=== PATIENT | male | born 1960 | race American Indian/Alaskan Native ===

== ENCOUNTER 2016-12-14 20:03 | Emergency (ER) | payer OTHER ==
[2016-12-14 20:38] VITALS: BP 157/90
[2016-12-14] MEDS ORDERED: BOOSTRIX IM ONE (21:58)
[2016-12-14] MEDS ORDERED: NACL 0.9% IR ONE (21:58)
[2016-12-14] MEDS ORDERED: XYLOCAINE 1%/ EPI 1:100,000 INFILTRATI NR (22:00)
--- NOTE | 2016-12-14 22:45 | Emergency Department Report ---
- General Chief Complaint: Wound/Laceration Stated Complaint: LEFT ARM LACERATION Time Seen by Provider: 12/14/16 21:56 Source: patient Mode of arrival: Ambulatory Limitations: No Limitations - History of Present Illness Initial Comments: Patient comes into the ER today with complaints of a laceration to his left wrist. Patient states that he was scraping the main plates also some trophies and his house when the scraper accidentally slipped and he cut his left wrist. Patient is unsure of his last tetanus shot. Patient denies any other complaints. -: hour(s) (1) - Related Data Previous Rx's Medication Instructions Recorded Last Taken Type Cephalexin [Keflex] 500 mg PO TID #30 capsule 12/14/16 Unknown Rx traMADol [Ultram 50 MG tab] 50 mg PO Q4HR PRN #20 tablet 12/14/16 Unknown Rx Allergies Allergy/AdvReac Type Severity Reaction Status Date / Time No Known Allergies Allergy Verified 12/14/16 20:13 ED Review of Systems ROS: Stated complaint: LEFT ARM LACERATION Other details as noted in HPI Constitutional: denies: chills, fever Eyes: denies: eye pain, eye discharge, vision change ENT: denies: ear pain, throat pain Respiratory: denies: cough, shortness of breath, wheezing Cardiovascular: denies: chest pain, palpitations Endocrine: no symptoms reported Gastrointestinal: denies: abdominal pain, nausea, diarrhea Genitourinary: denies: urgency, dysuria Musculoskeletal: denies: back pain, joint swelling, arthralgia Skin: denies: rash, lesions Neurological: denies: headache, weakness, paresthesias Psychiatric: denies: anxiety, depression Hematological/Lymphatic: denies: easy bleeding, easy bruising ED Past Medical Hx - Past Medical History Previous Medical History?: Yes Hx Hypertension: Yes - Surgical History Past Surgical History?: No - Social History Smoking Status: Never Smoker Substance Use Type: None - Medications Home Medications: Home Medications Medication Instructions Recorded Confirmed Last Taken Type Cephalexin [Keflex] 500 mg PO TID #30 capsule 12/14/16 Unknown Rx traMADol [Ultram 50 MG tab] 50 mg PO Q4HR PRN #20 tablet 12/14/16 Unknown Rx ED Physical Exam - General Limitations: No Limitations General appearance: alert, in no apparent distress - Head Head exam: Present: atraumatic, normocephalic - Eye Eye exam: Present: normal appearance - ENT ENT exam: Present: mucous membranes moist - Neck Neck exam: Present: normal inspection - Respiratory Respiratory exam: Present: normal lung sounds bilaterally. Absent: respiratory distress - Cardiovascular Cardiovascular Exam: Present: regular rate, normal rhythm. Absent: systolic murmur, diastolic murmur, rubs, gallop - GI/Abdominal GI/Abdominal exam: Present: soft, normal bowel sounds - Rectal Rectal exam: Present: deferred - Extremities Exam Extremities exam: Present: full ROM, tenderness (left wrist), normal capillary refill, other (3.5 cm linear laceration noted to anterior lateral left wrist) - Back Exam Back exam: Present: normal inspection - Neurological Exam Neurological exam: Present: alert, oriented X3 - Psychiatric Psychiatric exam: Present: normal affect, normal mood - Skin Skin exam: Present: warm, dry, intact, normal color. Absent: rash ED Course Vital Signs 12/14/16 12/14/16 20:13 20:37 Temperature 98.5 F 98.3 F Pulse Rate 87 70 Respiratory 18 18 Rate Blood Pressure 162/102 Blood Pressure 157/90 [Right] O2 Sat by Pulse 100 98 Oximetry - Laceration /Wound Repair Left Anterior Lateral Volar Wrist Wound Location: upper extremity (left lateral anterior wrist) Wound Length (cm): 3 (actual laceration length 3.5 cm) Wound's Depth, Shape: linear (cutaneous) Wound Explored: clean Irrigated w/ Saline (ccs): 45 Betadine Prep?: Yes Anesthesia: Lidocaine w/ Epi Volume Anesthetic (ccs): 5 Wound Repaired With: sutures Suture Size/Type: 4:0, nylon Number of Sutures: 8 Layer Closure?: No Sterile Dressing Applied?: Yes ED Medical Decision Making - Medical Decision Making Patient tolerated laceration repair without any complications. Patient given update his tetanus vaccine here in the ER. Have instructed patient to return to the ER in 14 days for suture removal. I also instructed patient on proper care of phone. Patient is in agreement with treatment plan patient stable for discharge. Critical care attestation.: If time is entered above; I have spent that time in minutes in the direct care of this critically ill patient, excluding procedure time. ED Disposition Clinical Impression: Laceration of left wrist Disposition: DC-01 TO HOME OR SELFCARE Is pt being admited?: No Does the pt Need Aspirin: No Condition: Good Instructions: Laceration (ED), Suture Care (ED) Prescriptions: Cephalexin [Keflex] 500 mg PO TID #30 capsule traMADol [Ultram 50 MG tab] 50 mg PO Q4HR PRN #20 tablet PRN Reason: Pain Referrals: PRIMARY CARE,MD [Primary Care Provider] - 3-5 Days [facility], emergency Department [Other] - 12/28/16 (For suture removal) Time of Disposition: 22:56
[2016-12-14] MEDS ORDERED: TRIPLE ANTIBIOTIC TP ONE ×2 (23:00→23:01)
== END 2016-12-14 23:10 | disposition home or self-care (01) ==
LOC: ED 20:03
DX: S61.512A Laceration without foreign body of left wrist, initial encounter (principal); I10 Essential (primary) hypertension; W45.8XXA Other foreign body or object entering through skin, initial encounter; Y93.9 Activity, unspecified; Y92.9 Unspecified place or not applicable; Y99.9 Unspecified external cause status
CPT/HCPCS: 90471; 90715; 99282; A6250